=== PATIENT | female | born 1980 | race Caucasian/White ===

== ENCOUNTER 2017-07-25 07:11 | Emergency (ER) | payer OTHER ==
[~2017-07-25] VITALS: Ht 172.7 cm; Wt 79.4 kg
[~2017-07-25 07:11] MED LIST: AMOCLA875 PO; BUPR100; CEPH500 PO; CIPR500 PO; CODGUAEL PO; CRANBERRY PILLS; CYCL10 PO; Cleocin HCl150 MG PO; DIAZ5 PO; FAMO20 PO; FAMO40 PO; FLUT.05NI; HYDACE10B PO; HYDACE5 PO; HYDACE5325 PO; HYDHCL25 PO; HYDPAM25 PO; IBUP800 PO; LEVFLO250 PO; Naprosyn375 MG PO; Norco 5-325 Ta1 EACH PO; OXYACE5T PO; PHENA200 PO; PRED20 PO; PRENZ; Pyridium100 MG PO; SULTRIDS PO; SULTRISS; Zithromax250 MG PO
[2017-07-25] MEDS ORDERED: Mucinex D 1,201 EACH PO (09:11)
[2017-07-25] MEDS ORDERED: Augmentin 875-1 EACH PO (09:11)
[2017-07-25] MEDS ORDERED: Diflucan150 MG PO (09:14)
== END 2017-07-25 09:15 | disposition home or self-care (01) ==
LOC: ER 07:11
DX: J32.9 Chronic sinusitis, unspecified (principal); Z88.2 Allergy status to sulfonamides; Z79.899 Other long term (current) drug therapy; Z79.2 Long term (current) use of antibiotics
CPT/HCPCS: 87081; 99283

== ENCOUNTER → 2017-10-10 | Outpatient (CLI) | payer OTHER ==
[~2017-10-10] MED LIST changes: +Augmentin 875-1 EACH PO; +Diflucan150 MG PO; +Mucinex D 1,201 EACH PO
[2017-10-12 13:16] LABS: HPV Genotype 16 Not Detected (NOTDET); HPV Genotype 18 Not Detected (NOTDET)
[2017-10-18 10:21] LABS: HPV High Risk Other Not Detected (NOTDET)
== END ==
LOC: LAB 13:30 → LAB SHORT 13:30
PROVIDERS: Registered Nurse Community Health
DX: Z12.4 Encounter for screening for malignant neoplasm of cervix (principal)
CPT/HCPCS: 87624; G0123

== ENCOUNTER 2018-07-10 19:53 | Emergency (ER) | payer OTHER ==
[~2018-07-10] VITALS: Ht 170.2 cm; Wt 83.9 kg
[2018-07-10] MEDS ORDERED: Augmentin 875-1 EACH PO (21:38)
== END 2018-07-10 21:57 | disposition home or self-care (01) ==
LOC: ER 19:53
DX: J32.9 Chronic sinusitis, unspecified (principal); Z88.2 Allergy status to sulfonamides
CPT/HCPCS: 99282

== ENCOUNTER → 2021-07-21 | Outpatient (CLI) | payer OTHER ==
[2021-07-21 14:59] LABS: Bacteria Few /hpf; Squamous Epithelial Cells Few /hpf (Few); White Blood Cells, Urine 0-2 /hpf (0-5)
== END | disposition home or self-care (01) ==
LOC: LAB SHORT 10:50
PROVIDERS: Nurse Practitioner
DX: R11.0 Nausea (principal); M54.6 Pain in thoracic spine
CPT/HCPCS: 81015

== ENCOUNTER → 2023-01-16 | Outpatient (CLI) | payer OTHER ==
[2023-01-17 15:10] LABS: HPV 16 Negative (Negative); HPV 18 Negative (Negative); HPV OTHER HR TYPES Negative (Negative)
[2023-01-18 13:09] LABS: CHLAMYDIA BY NAA Negative (Negative); GONOCOCCUS BY NAA Negative (Negative); TRICH VAG BY NAA Negative (Negative)
== END ==
LOC: LAB SHORT 16:19 → LAB 16:19
PROVIDERS: Registered Nurse Community Health
DX: Z12.4 Encounter for screening for malignant neoplasm of cervix (principal)
CPT/HCPCS: 87491; 87591; 87624; 87661; G0145

== ENCOUNTER 2024-09-15 22:54 | Emergency (ER) | payer OTHER ==
[~2024-09-15] VITALS: Ht 170.2 cm; Wt 81.7 kg
[2024-09-15 23:21] VITALS: BP 136/95
[2024-09-16 01:52] LABS: CORONAVIRUS COVID-19 AG Negative (NEGATIVE); INFLUENZA A AG Negative (NEGATIVE); INFLUENZA B AG Negative (NEGATIVE)
[2024-09-16] MEDS ORDERED: [UNRECOGNIZED DRUG - CODE] PO (04:35)
== END 2024-09-16 04:34 | disposition home or self-care (01) ==
LOC: ER 22:54
PROVIDERS: Emergency Medicine
DX: J02.8 Acute pharyngitis due to other specified organisms (principal)
CPT/HCPCS: 87081; 87147; 87428-QW; 87430; 99283